=== PATIENT | female | born 2000 | race Caucasian/White ===

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

== ENCOUNTER 2021-12-26 22:29 | Emergency (ER) | payer OTHER, MEDICAID, SELFPAY ==
[2021-12-26 22:32] VITALS: BP 126/81; PULSE 87; RESP 18; TEMP 37.1; O2SAT 97; BMI 34.8
--- NOTE | 2021-12-26 22:56 | USR_ITS ---
PROCEDURE INFORMATION: Exam: US First Trimester, Transabdominal and US , Transvaginal Exam date and time: 12/26/2021 11:16 PM Age: 21 years old Clinical indication: Lmp or gestational age (in weeks): 8w 2d per lmp; Antepartum complications; Bleeding; Patient HX: At end of exam quant hcg is still pending; Additional info: Threatened miscarriage LABS AND CLINICAL REPORTS: Last menstrual period start date: 10/29/2021 Gestational age (Established): 8 w 2 d Estimated due date (Established): 08/05/2022 TECHNIQUE: Imaging protocol: Real-time transabdominal obstetrical ultrasound of the maternal pelvis and a first trimester , less than 14 weeks 0 days, with image documentation. Transvaginal imaging was used for better evaluation of the fetus, adnexa, and/or cervix. COMPARISON: US OB >= 14 weeks fetus [id number] 03/28/2020 1:32 PM FINDINGS: Gestation: Negative for intrauterine . MATERNAL: Uterus: Uterus measures 4.5 cm x 8.9 cm x 4.1 cm. Endometrial stripe is diffusely thickened measuring up to 2.3 cm, retained products of conception are not excluded, close clinical correlation, serial beta HCG levels and follow-up ultrasound as clinically indicated advised. Cervix: Unremarkable. Right ovary/adnexa: Right ovary measures 2.6 cm x 1.5 cm x 2.7 cm. Right ovarian volume is 5.5 mL. Left ovary/adnexa: Left ovary measures 2.5 cm x 1.9 cm x 3.2 cm. Left ovarian volume is 7.7 mL. Intraperitoneal space: No intraperitoneal free fluid. US/US OB <= 14 weeks fetus [id number] IMPRESSION: 1. Negative for intrauterine , if patient is , they remain at risk for ectopic , close clinical correlation, serial beta HCG levels and follow-up ultrasound as clinically indicated advised. 2. Endometrial stripe is diffusely thickened measuring up to 2.3 cm, retained products of conception are not excluded, close clinical correlation, serial beta HCG levels and follow-up ultrasound as clinically indicated advised.
--- NOTE | 2021-12-26 22:58 | ED_ITS ---
HPI - General: Chief complaint: Vaginal Bleeding Stated complaint: possible miscarriage Time Seen by Provider: 12/26/21 22:45 Source: patient Mode of arrival: ambulatory Limitations: no limitations History of Present Illness: 21-year-old female who is currently 8 weeks states that roughly an hour ago started having bleeding she states she did pass a clot. She had 1 previous no problems with that . States she has had some abdominal cramping she rates up 5 out of 10 denies any vomiting or diarrhea she denies any worse or improving factors. She has not seen anyone with this Date of Last Menstrual Period: 10/29/21 Associated symptoms: Deny abdominal pain, headache(s), nausea or vomiting Review of Systems Const: Denies: fever(s), chills, body aches or change in appetite Eyes: Denies: blurry vision or eye discomfort ENMT: Denies: throat pain or dental pain Card: Denies: chest pain Resp: Denies: dyspnea GI: Denies: abdominal pain, nausea, vomiting or diarrhea : Reports: vaginal bleeding Musc: Denies: neck pain or back pain Skin/Breast: Denies: rash Neuro: Denies: headache(s) Psych: Denies: depression Huey/Lymph: Denies: easy bruising All/Imm: Denies: urticaria PFSH ED PFSH: Medical History (Updated 12/27/21 @ 01:19 by Roger Schofield MD) No pertinent past medical history Social History Smoking and tobacco status: never smoked Female Reproductive History: Date of last menstrual period: 10/29/21 Physical Exam Const: COMMON NORMALS: no acute distress, patient oriented x3 and healthy appearing HENMT: COMMON NORMALS: normocephalic and atraumatic HEAD & SCALP: normocephalic and atraumatic Eye: COMMON NORMALS: Equal, round and reactive pupils present and EOMs intact bilaterally PUPIL: Yes Equal, round and reactive pupils present Neck/C-Spine: COMMON NORMALS: full ROM and supple Chest: COMMONS NORMALS: normal inspection of the chest and normal palpation of entire chest wall Resp: COMMON NORMALS: normal respiratory effort, No retractions, No use of accessory muscles and clear to auscultation bilaterally AUSCULTATION: clear to auscultation bilaterally Cardio: COMMON NORMALS: regular rate, regular rhythm and No murmurs present (Cardio) RATE: regular rate RHYTHM: regular rhythm GI: COMMON NORMALS: Normal to inspection, nondistended, normoactive bowel sounds present, Soft to palpation, non-tender and no masses PALPATION: Yes Soft to palpation Extremity: COMMON NORMALS: normal to inspection and full ROM Neuro: COMMON NORMALS: patient oriented x3, moves all extremities and no focal motor deficits Psych: COMMON NORMALS: mental status grossly normal, Normal thought process present and cooperative THOUGHT PROCESS: Normal thought process present Skin: COMMON NORMALS: no rashes or lesions noted and no wounds GENERAL SKIN EXAM: no rashes or lesions noted Course Vital Signs: Vital signs: Vital Signs Temperature 98.8 F 12/26/21 22:32 Pulse Rate 87 12/27/21 01:22 Respiratory Rate 18 12/27/21 01:22 Blood Pressure 126/81 12/27/21 01:22 Pulse Oximetry 97 12/27/21 01:22 Oxygen Delivery Me thod 12/26/21 22:32 MDM - OB/Uterine Contractions Medical Decision Making Patient presents with vaginal bleeding she is likely had a miscarriage her ultrasound here showed no IUP. Her pain and bleeding here is improved I recommended a pelvic exam but she refused we will get her follow-up I informed her she is to follow-up in 2 to 3 days to make sure her quantitative is trending down she is to return if worsening bleeding. Lab Data : 12/26/21 22:03 Radiology Impressions Ultrasound 12/26/21 22:56 IMPRESSION: 1. Negative for intrauterine , if patient is , they remain at risk for ectopic , close clinical correlation, serial beta HCG levels and follow-up ultrasound as clinically indicated advised. 2. Endometrial stripe is diffusely thickened measuring up to 2.3 cm, retained products of conception are not excluded, close clinical correlation, serial beta HCG levels and follow-up ultrasound as clinically indicated advised. Laboratory Results WBC 10.4 10^3/uL (4.5-13.0) 12/26/21 22:03 RBC 4.64 10^6/uL (4.1-5.3) 12/26/21 22:03 Hgb 13.4 g/dL (11.5-15.3) 12/26/21 22:03 Hct 40.2 % (37.0-47.0) 12/26/21 22: MCV 86.6 fl (81-99) 12/26/21 22: MCH 28.9 pg (28.0-34.0) 12/26/21 22: MCHC 33.3 g/dL (30.0-36.0) 12/26/21 22: RDW 12.1 % (12.1-15.1) 12/26/21 22: Plt Count 353 10^3/cmm (130-400) 12/26/21 22: MPV 9.9 fL (7.4-10.4) 12/26/21 22: Neut % (Auto) 72.4 % 12/26/21 22: Lymph % (Auto) 19.6 % 12/26/21 22: [place] % (Auto) 5.7 % 12/26/21 22: Eos % (Auto) 1.4 % 12/26/21: Baso % (Auto) 0.5 % 12/26/21: Neut # (Auto) 7.52 10^3/uL (1.8-8.0) 12/26/21 22: Lymph # (Auto) 2.0 10^3/uL (1.5-6.5) 12/26/21 22: [place] # (Auto) 0.6 10^3/uL (0.2-0.9) 12/26/21 22: Eos # (Auto) 0.2 10^3/uL (0.0-0.8) 12/26/21 22: Baso # (Auto) 0.1 10^3/uL (0.0-0.1) 12/26/21: Nucleated RBC % (auto) 0 % 12/26/21: Nucleated RBCs # 0.0 /100WBC 12/26/21: Ser , Semi-Qnt 93253.00 mIU/mL 12/26/21 22: Blood Type O Positive 12/26/21: Rho(D) Type Positive 12/26/21: Antibody Screen Negative 12/26/21 22: Discharge Plan Discharge Patient Disposition: Home Clinical Impression: Miscarriage Condition: Stable Prescriptions: No Action ibuprofen 800 mg Tablet 800 mg PO TID Qty: 45 0RF -U 106.5-1 mg Capsule 1 cap PO DAILY Qty: 90 2RF Discharge Orders: Discharge ED (Routine); Ordered 12/27/21 Ordered By: Roger Schofield Discharge Diet: Advance as tolerated Discharge Activity: Resume usual activity Patient Instructions: Miscarriage (ED) Coding Level of Care Code ED Underwriter Solicitation Director for Chg Fwd Exam Comprehensive
[2021-12-26 23:14] LABS: Basophils # 0.1 10^3/uL (0.0-0.1); Basophils % 0.5 %; Eosinophils # 0.2 10^3/uL (0.0-0.8); Eosinophils % 1.4 %; Hematocrit 40.2 % (37.0-47.0); Hemoglobin 13.4 g/dL (11.5-15.3); Lymphocytes % 19.6 %; Mean Corpuscular HGB Conc 33.3 g/dL (30.0-36.0); Mean Corpuscular Hemoglobin 28.9 pg (28.0-34.0); Mean Corpuscular Volume 86.6 fl (81-99); Mean Platelet Volume 9.9 fL (7.4-10.4); Monocytes # 0.6 10^3/uL (0.2-0.9); Monocytes % 5.7 %; Neutrophils # 7.52 10^3/uL (1.8-8.0); Neutrophils % 72.4 %; Nucleated Red Blood Cells % 0 %; Platelet Count 353 10^3/cmm (130-400); Red Blood Count 4.64 10^6/uL (4.1-5.3); Red Cell Distribution Width 12.1 % (12.1-15.1); White Blood Count 10.4 10^3/uL (4.5-13.0)
[2021-12-26] MEDS: acetaminophen 325 mg Tablet 650 MG PO (23:16)
[2021-12-27 01:22] VITALS: BP 126/81; PULSE 87; RESP 18; O2SAT 97
--- NOTE | 2021-12-27 09:12 | DCPLANNER ---
Addendum entered by Rhiannon Pérez 01/14/22 14:41: social services manager received the following message from [facility] regarding referral: Referral letter sent. Disregard referral after 01/20/2022 On Thu 2:35p Dec 31, 2021 Kisha Parker (Covering For: [facility] Front [facility]) Wrote To: [facility] left message with pt. mother to have pt call us Original Note: social services manager had message to schedule a follow up appointment for patient with [facility]. social services manager sent patients information to the front office staff at [facility]. Patients information will be printed and reviewed. Clinic will call patient with appointment information.
== END 2021-12-27 01:23 | disposition home or self-care (01) ==
PROVIDERS: Emergency Provider Emergency Medicine
DX: O03.9 Complete or unspecified spontaneous abortion without complication (principal)
CPT/HCPCS: 76801; 84702; 85025; 86850; 86900; 99284

== ENCOUNTER 2022-02-05 19:35 | Inpatient (IN) | payer OTHER, MEDICAID, SELFPAY ==
[2022-02-05 19:51] VITALS: BP 132/85; PULSE 94; RESP 18; TEMP 36.8; O2SAT 94; BMI 36.0
--- NOTE | 2022-02-05 19:53 | ED.C_ITS ---
HPI - Psych General: Chief Complaint: Psychiatric Symptoms Stated Complaint: SI Time Seen by Provider: 02/05/22 19:53 History of Present Illness: Ms. Granger is a 21-year-old female with history of depression presenting to the emergency department due to suicidal ideation and suicide attempt. She reports a longstanding history of depression though has not been on medication for some period of time. She does have a history of cutting and overdose though denies history of hospitalizations for this such. She has had increased social stressors including psychosis which limited her support system, subsequently she has had a miscarriage and also the end of a long-term relationship which has made her feel more depressed and suicidal. Intensity of symptoms is severe. Course has worsened. Yesterday she took 3 [id number] antihistamine medications with the hopes of this stopping her heart. Otherwise denies changes in health or medical complaints. No other specific changes in health, exacerbating, or alleviating factors identified. Onset (ago): week(s) Duration: getting worse History of same: Yes Context: not taking psychiatric medications and significant life stressor Associated psychiatric symptoms: depression and suicidal ideation If self harm: admits thoughts of self harm, has plan, has acted on plan and intentional overdose Review of Systems General: Reports: 10 or more systems reviewed and unremarkable except in HPI and below PFSH ED PFSH: Medical History No pertinent past medical history Psychiatric care Social History Smoking and tobacco status: never smoked Female Reproductive History: Date of last menstrual period: 10/29/21 Physical Exam Const: COMMON NORMALS: alert GENERAL APPEARANCE: cooperative and well developed HENMT: COMMON NORMALS: normocephalic and atraumatic HEAD & SCALP: normocephalic and atraumatic Eye: COMMON NORMALS: conjunctivae normal CONJUNCTIVA: Yes conjunctivae normal SCLERA: sclerae normal Neck/C-Spine: COMMON NORMALS: supple GENERAL: Yes trachea midline Resp: COMMON NORMALS: clear to auscultation bilaterally EFFORT & INSPECTION: Yes able to speak in complete sentences AUSCULTATION: clear to auscultation bilaterally Cardio: COMMON NORMALS: regular rate and regular rhythm RATE: regular rate RHYTHM: regular rhythm GI: COMMON NORMALS: Soft to palpation PALPATION: Yes Soft to palpation and No Tenderness to palpation present (GI) Extremity: GENERAL: Yes normal exam except as noted and No edema Neuro: COMMON NORMALS: moves all extremities SENSORIUM/ORIENTATION: Yes alert and No Orientation impaired Psych: COMMON NORMALS: mental status grossly normal and Normal thought process present MOOD & AFFECT: Yes depressed mood and Yes sad THOUGHT PROCESS: Normal thought process present Course Vital Signs: Vital signs: Vital Signs Temperature 98.5 F 02/08/22 11:40 Pulse Rate 86 02/08/22 11:40 Respiratory Rate 18 02/08/22 11:40 Blood Pressure 132/76 02/08/22 11:40 Pulse Oximetry 98 02/08/22 11:40 Oxygen Delivery Me thod 02/07/22 19:34 MDM - Psych Medical Decision Making 21-year-old female presenting to the emergency room due to suicidal ideation. Reports taking medication in attempt to overdose yesterday however there is no evidence of specific toxidrome on exam. EKG shows sinus rhythm, no terminal R wave in aVR, no STEMI Labs without significant hematologic or metabolic abnormalities require intervention. Toxic ingestions and UDS are negative. Given severity of symptoms including recent stressors and not being on medication likely that it is reasonable to admit the patient for psychiatric stabilization. Based on ED evaluation at this point there is no obvious condition that would preclude the patient from inpatient psychiatric care. The results of ED evaluation were discussed with the patient including plan for admission due to requirement for level of care not available if discharged to prevent significant worsening/deterioration. Patient agreeable with plan. Discussed with psychiatry service who was agreeable to admit patient. Medical Records I reviewed the patient's medical records. Lab Data I reviewed the patient's lab results. 02/05/22 19:57 02/05/22 19:57 Laboratory Results WBC 9.0 10^3/uL (4.5-13.0) 02/05/22 19:57 RBC 4.47 10^6/uL (4.1-5.3) 02/05/22 19:57 Hgb 13.1 g/dL (11.5-15.3) 02/05/22 19:57 Hct 41.7 % (37.0-47.0) 02/05/22 19:57 MCV 93.3 fl (81-99) 02/05/22 19:57 MCH 29.3 pg (28.0-34.0) 02/05/22 19:57 MCHC 31.4 g/dL (30.0-36.0) 02/05/22 19:57 RDW 12.0 % (12.1-15.1) L 02/05/22 19:57 Plt Count 227 10^3/cmm (130-400) 02/05/22 19:57 MPV 11.2 fL (7.4-10.4) H 02/05/22 19:57 Neut % (Auto) 63.7 % 02/05/22 19:57 Lymph % (Auto) 29.3 % 02/05/22 19:57 [place] % (Auto) 4.5 % 02/05/22 19:57 Eos % (Auto) 1.7 % 02/05/22 19:57 Baso % (Auto) 0.6 % 02/05/22 19:57 Neut # (Auto) 5.76 10^3/uL (1.8-8.0) 02/05/22 19:57 Lymph # (Auto) 2.7 10^3/uL (1.5-6.5) 02/05/22 19:57 [place] # (Auto) 0.4 10^3/uL (0.2-0.9) 02/05/22 19:57 Eos # (Auto) 0.2 10^3/uL (0.0-0.8) 02/05/22 19:57 Baso # (Auto) 0.1 10^3/uL (0.0-0.1) 02/05/22 19:57 Nucleated RBC % (auto) 0 % 02/05/22 19:57 Nucleated RBCs # 0.0 /100WBC 02/05/22 19:57 Sodium 137 mmol/L (136-145) 02/05/22 19:57 Potassium 3.8 mmol/L (3.5-5.1) 02/05/22 19:57 Chloride 102 mmol/L (98-107) 02/05/22 19:57 Carbon Dioxide 23 mmol/L (22-29) 02/05/22 19:57 Anion Gap 15.8 (5-19) 02/05/22 19:57 BUN 12 mg/dL (6-20) 02/05/22 19:57 Creatinine 0.6 mg/dL (0.5-0.9) 02/05/22 19:57 GFR Calculation 127.5 mL/min (90-130) 02/05/22 19:57 Glucose 99 mg/dL (65-115) 02/05/22 19:57 Calculated Osmolality 284 mOsm/kg (285-295) L 02/05/22 19:57 Calcium 9.4 mg/dL (8.5-10.5) 02/05/22 19:57 Total Bilirubin 0.2 mg/dL (0.15-1.2) 02/05/22 19:57 AST 21 U/L (0-32) 02/05/22 19:57 ALT 27 U/L (0-33) 02/05/22 19:57 Alkaline Phosphatase 121 U/L (35-105) H 02/05/22 19:57 Total Protein 8.3 g/dL (6.6-8.7) 02/05/22 19:57 Albumin 4.1 g/dL (3.5-5.2) 02/05/22 19:57 Globulin 4.2 g/dL (1.3-4.6) 02/05/22 19:57 TSH 1.37 uIU/mL (0.27-4.20) 02/05/22 19:57 HCG, Qual Negative (Negative) 02/05/22 20:07 Salicylates < 0.3 mg/dL (3-10) L 02/05/22 19:57 Urine Opiates Screen Negative ng/mL (Negative) 02/05/22 20:08 Acetaminophen < 5.0 ug/mL (10-30) L 02/05/22 19:57 Ur Barbiturates Screen Negative ng/mL (Negative) 02/05/22 20:08 Ur Phencyclidine Scrn Negative ng/mL (Negative) 02/05/22 20:08 Ur Amphetamines Screen Negative ng/mL (Negative) 02/05/22 20:08 U Benzodiazepines Scrn Negative ng/mL (Negative) 02/05/22 20:08 Urine Cocaine Screen Negative ng/mL (Negative) 02/05/22 20:08 U Marijuana (THC) Screen Negative ng/mL (Negative) 02/05/22 20:08 Ethyl Alcohol < 10 mg/dL (0-10) 02/05/22 19:57 Discharge Plan Discharge Patient Disposition: Admitted As Inpatient Admit Provider: Kevin Jesus Clinical Impression: Suicidal ideation, Suicide attempt by substance overdose Condition: Stable Discharge Diet: Regular Discharge Activity: Resume usual activity Coding Level of Care Code ED Farm Tractor Operator for Zoraida Pickens
[2022-02-05 20:17] LABS: Basophils # 0.1 10^3/uL (0.0-0.1); Basophils % 0.6 %; Eosinophils # 0.2 10^3/uL (0.0-0.8); Eosinophils % 1.7 %; Hematocrit 41.7 % (37.0-47.0); Hemoglobin 13.1 g/dL (11.5-15.3); Lymphocytes # 2.7 10^3/uL (1.5-6.5); Lymphocytes % 29.3 %; Mean Corpuscular HGB Conc 31.4 g/dL (30.0-36.0); Mean Corpuscular Hemoglobin 29.3 pg (28.0-34.0); Mean Corpuscular Volume 93.3 fl (81-99); Mean Platelet Volume 11.2 fL (7.4-10.4); Monocytes # 0.4 10^3/uL (0.2-0.9); Monocytes % 4.5 %; Neutrophils # 5.76 10^3/uL (1.8-8.0); Neutrophils % 63.7 %; Nucleated Red Blood Cells % 0 %; Platelet Count 227 10^3/cmm (130-400); Red Blood Count 4.47 10^6/uL (4.1-5.3)
[2022-02-05 20:31] LABS: Amphetamines Screen Urine Negative (Negative); Barbiturates Screen Urine Negative (Negative); Benzodiazepines Screen Urine Negative (Negative); Cocaine Screen Urine Negative (Negative); Opiate Screen Urine Negative (Negative); PCP Screen Urine Negative (Negative); THC Screen Urine Negative (Negative)
[2022-02-05 20:33] LABS: HCG Qualitative Urine. Negative (Negative)
--- NOTE | 2022-02-05 20:33 | PC.NURSE ---
Pt began having moderate panic attack, able to calm down some with guided breathing and sensory. MD notified
[2022-02-05] MEDS: LORazepam 1 mg Tablet PO (20:39)
[2022-02-05 20:45] LABS: Alanine Aminotransferase 27 U/L (0-33); Albumin Level 4.1 g/dL (3.5-5.2); Alkaline Phosphatase 121 U/L (35-105); Blood Urea Nitrogen 12 mg/dL (6-20); Calcium 9.4 mg/dL (8.5-10.5); Carbon Dioxide 23 mmol/L (22-29); Chloride 102 mmol/L (98-107); Globulin 4.2 g/dL (1.3-4.6); Glomerular Filtration Rate 127.5 mL/min (90-130); Glucose 99 mg/dL (65-115); Osmolality Calculated 284 mOsm/kg (285-295); Sodium 137 mmol/L (136-145); Thyroid Stimulating Hormone 1.37 uIU/mL (0.27-4.20); Total Bilirubin 0.2 mg/dL (0.15-1.2); Total Protein 8.3 g/dL (6.6-8.7)
[2022-02-05 20:54] LABS: Acetaminophen < 5.0 ug/mL (10-30); Alcohol Level < 10 mg/dL (0-10); Salicylate < 0.3 mg/dL (3-10)
[2022-02-05 20:59] LABS: Anion Gap 15.8 (5-19); Aspartate Amino Transferase 21 U/L (0-32); Potassium 3.8 mmol/L (3.5-5.1)
--- NOTE | 2022-02-05 21:37 | ECG_ITS ---
[facility] Date: 2022-02-05 Pat Name: Josselin Granger Department: Room: Gender: Female Cis Coordinator: : 2000 Requested By: Mark Gonzalez Order Number: [id number] Jose MD: Desean Cerna M.D. Measurements Intervals [place] Rate: 75 P: 49 WV: 158 QRS: 42 QRSD: 103 T: 43 QT: 367 QTc: 410 Interpretive Statements SINUS RHYTHM WITH SINUS ARRHYTHMIA POSSIBLE RIGHT VENTRICULAR CONDUCTION DELAY [RSR (QR) IN V1/V2] Compared to ECG 08/04/2019 19:35:34 No significant changes Electronically Signed On 02-07-2022 13:50:49 CLIENT ACCOUNT SPECIALIST by Desean Cerna M.D. [email or web address]
[2022-02-05 23:28] VITALS: BP 104/71; PULSE 88; RESP 18; O2SAT 96
[2022-02-05 23:42] VITALS: BP 122/78; PULSE 72; RESP 18; TEMP 36.4; O2SAT 99
[2022-02-06] MEDS: hyDROXYzine 25 mg Capsule 50 MG PO ×2 (00:04→23:58)
[2022-02-06] MEDS: trazodone 50 mg Tablet PO ×2 (00:04→23:58)
[2022-02-06 06:00] VITALS: BP 95/58; PULSE 78; RESP 18; TEMP 36.7; O2SAT 98
--- NOTE | 2022-02-06 09:55 | PC.NURSE ---
Pt resting in bed with eyes closed; respirations even and unlabored at 0800. Attempted to complete pt's assessment at 0900. Pt opened her eyes, mumbled a few answers, then closed her eyes again. Allowed pt to rest. Will attempt assessment later.
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
[2022-02-06 14:00] VITALS: BP 91/54; PULSE 85; RESP 18; TEMP 36.6; O2SAT 97
[2022-02-06 22:00] VITALS: BP 96/59; PULSE 66; RESP 17; TEMP 36.8; O2SAT 99
[2022-02-07 06:00] VITALS: BP 99/61; PULSE 72; RESP 18; TEMP 36.7; O2SAT 98
[2022-02-07 14:00] VITALS: BP 102/74; PULSE 75; RESP 18; TEMP 36.4; O2SAT 98
--- NOTE | 2022-02-07 17:21 | W.PM.NPUPNS ---
Subjective NPU Subjective: Patient is in today reporting that she is feeling better. Her mother visited and agreed she is better and talked about the possibility of discharge. Further investigation identified that the greater goal of going to the hospital was clear that waiting for the appointment at [facility] was going to be problematic and not safe. So essentially they wanted a medication initiated and mom reports she feels she would be able to watch her and keep her safe while you are waiting for the appointment. We discussed evaluating today the possibility discharge tomorrow. Mental Status Exam MSE Comments: This is an obese, short, white female in hospital scrubs on with limited grooming and eye contact. No abnormal movements except for psychomotor retardation. Somewhat cooperative with exam in mild distress. Speech was normal rate and volume. Mood described as a little better, affect is congruent. Thought process, organized. Thought content: patient denies suicidal or homicidal ideation, no delusions reported or noted and denies any auditory or visual hallucinations. Attention and concentration are intact and memory appeared reliable but none were formally tested. She is alert and oriented times three. Insight and judgment are fair. Impulse control is fair. Vitals/I&O/Wt Last Vital Signs Temp 98.5 F 02/07/22 19:34 Pulse 86 02/07/22 19:34 Resp 16 02/07/22 19:34 BP 132/76 02/07/22 19:34 Pulse Ox 98 02/07/22 19:34 O2 Del Method 02/07/22 19:34 Data NPU 02/05/22 19:57 02/05/22 19:57 A&P Assessment and plan (1) Suicidal ideation: (2) Suicide attempt by substance overdose: (3) PTSD (post-traumatic stress disorder): (4) Major depressive disorder: Plan This documentThis is a 21 year old white woman with a history of trauma, depression and genetic loading for mental health, addiction and lethality issues who presents reporting suicidal ideation and open currently to medications at this time. 1. Continue current medications. Started Prozac 20 mg poq daily. 2. Encourage individual, group and milieu therapy 3. Continue q-15 minute check for safety 4. Recommend sober living treatment at the highest level of care to which the patient is willing to commit. Involuntary Hold Information 96 Hour Hold: 96 Hour Involuntary Admission: No Attestations NPU Medical Necessity Statement*: Inpatient hospitalization is medically necessary and the clinically appropriate intervention at this time. We will monitor medications and make changes as indicated. Likely length of stay is 1-3 days with tentative plan for discharge tomorrow if there are no complications. Coding Level of Care Code Acute Preload Supervisor for g Fwd Diagnoses Suicidal ideation R45.851 Suicide attempt by substance overdose T65.92XA PTSD (post-traumatic stress disorder) F43.10 Major depressive disorder F32.9
[2022-02-07 19:34] VITALS: BP 132/76; PULSE 86; RESP 16; TEMP 36.9; O2SAT 98
[2022-02-08] MEDS: hyDROXYzine 25 mg Capsule 50 MG PO (00:20)
[2022-02-08 06:00] VITALS: RESP 18
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
[2022-02-08] MEDS: fluoxetine 20 mg Capsule PO (11:37)
[2022-02-08 11:40] VITALS: BP 132/76; PULSE 86; RESP 18; TEMP 36.9; O2SAT 98
== END 2022-02-08 12:12 | disposition home or self-care (01) | DRG 885 ==
LOC: ER 21:19 → NP 23:29
PROVIDERS: Admitting Provider Psychiatry & Neurology Psychiatry; Emergency Provider Emergency Medicine; Visit Provider Psychiatry & Neurology Psychiatry
DX: F33.9 Major depressive disorder, recurrent, unspecified (principal); R45.851 Suicidal ideations; T65.92XA Toxic effect of unspecified substance, intentional self-harm, initial encounter; F43.10 Post-traumatic stress disorder, unspecified; Z91.52 Personal history of nonsuicidal self-harm; F17.290 Nicotine dependence, other tobacco product, uncomplicated; Z63.0 Problems in relationship with spouse or partner; Z62.810 Personal history of physical and sexual abuse in childhood
CPT/HCPCS: 80053; 80306; 80307; 81025; 84443; 85025; 93005; 97150; 97165; 99285

== ENCOUNTER 2024-04-22 13:43 | Inpatient (IN) | payer OTHER, MEDICAID, SELFPAY ==
[2024-04-22 13:45] VITALS: BP 109/72; PULSE 88; RESP 16; TEMP 36.8; O2SAT 98; BMI 35.6
--- NOTE | 2024-04-22 13:55 | W.ED.PSYCHS ---
HPI - Psych General: Chief Complaint: Psychiatric Symptoms Stated Complaint: MHE Time Seen by Provider: 04/22/24 13:51 Source: patient Mode of arrival: ambulatory Limitations: no limitations History of Present Illness: Patient is a 23-year-old female who presents to the ED today with complaint of worsening anxiety and depression. Patient states she is supposed to be taking fluoxetine and buspirone but stopped taking them a few months ago. She feels like she is spiraling and does not feel like she is in a good mental state currently. She is having suicidal ideations but she denies specific plan. She does have a previous attempt approximately 2 years ago. She has a history of self cutting. Reports marijuana use but no other drug use. MD complaint: suicidal ideation and feels depressed Onset (ago): week(s) Duration: constant History of same: Yes Relieving factors: none Exacerbating factors: other (not taking psych meds) Context: not taking psychiatric medications Associated psychiatric symptoms: depression and suicidal ideation Associated symptoms: Reports depression and suicidal ideation; Deny auditory hallucinations, visual hallucinations or homicidal ideation Treatments prior to arrival: none Related Data Home Medications ?Medication ?Instructions ?Recorded ?Confirmed No Known Home Medications 04/22/24 04/22/24 Allergies Allergy/AdvReac Type Severity Reaction Status Date / Time sulfamethoxazole (From Allergy ALGY-Anaphy Verified 05/12/22 12:58 Bactrim) laxis trimethoprim (From Bactrim) Allergy ALGY-Anaphy Verified 05/12/22 12:58 laxis Review of Systems Const: Denies: fever(s), chills, body aches, fatigue or malaise Card: Denies: chest pain, palpitations, lightheadedness or syncope Resp: Denies: dyspnea GI: Denies: abdominal pain, nausea, vomiting or diarrhea Skin/Breast: Denies: rash Neuro: Denies: headache(s) Psych: Reports: anxiety, depression, hopelessness and suicidal ideation; Denies: paranoia, visual hallucinations, auditory hallucinations or homicidal ideation [facility] ED PFSH: Medical History Cannabis use disorder F12.10 Cannabis use, uncomplicated (no medical marijuana card) Vapes nicotine containing substance Psychiatric care No pertinent past medical history Social History (Reviewed 04/22/24 @ 14:12 by JACQUE Foy Smoking and tobacco/nicotine status: never used tobacco/nicotine Physical Exam Const: COMMON NORMALS: no acute distress, patient oriented x3, no limitations, alert and well nourished GENERAL APPEARANCE: cooperative Resp: COMMON NORMALS: normal respiratory effort and clear to auscultation bilaterally AUSCULTATION: clear to auscultation bilaterally Cardio: COMMON NORMALS: regular rate and regular rhythm RATE: regular rate RHYTHM: regular rhythm Neuro: COMMON NORMALS: patient oriented x3 SENSORIUM/ORIENTATION: Yes alert Psych: COMMON NORMALS: mental status grossly normal, Normal thought process present, cooperative, speech normal, activity/motor behavior normal, denies hallucinations and denies homicidal ideation APPEARANCE: Yes grossly normal ATTITUDE: Yes calm ACTIVITY/MOTOR BEHAVIOR: Yes appropriate eye contact and No psychomotor agitation SPEECH: Yes normal speech MOOD & AFFECT: Yes euthymic mood THOUGHT PROCESS: Normal thought process present MEMORY/COGNITION: Yes memory grossly intact and Yes cognition grossly intact INSIGHT: Good insight present (Psych) JUDGEMENT: Good judgement present (Psych) Course Consultations: Consultation #1: Dr. Jesus-accepts to NPU Vital Signs: Vital signs: Vital Signs Temperature 98.2 F 04/22/24 13:45 Pulse Rate 88 04/22/24 13:45 Respiratory Rate 16 04/22/24 13:45 Blood Pressure 109/72 04/22/24 13:45 Pulse Oximetry 98 04/22/24 13:45 Oxygen Delivery Me thod Room Air 04/22/24 13:45 MDM - Psych Medical Decision Making Patient will be admitted to NPU for depression and suicidal ideations. She is voluntary at this time. Medical Records I reviewed the patient's medical records. Lab Data I reviewed the patient's lab results. 04/22/24 14:40 04/22/24 14:40 Laboratory Results WBC 9.16 10^3/uL (3.29-11.43) 04/22/24 14:40 RBC 4.70 10^6/uL (3.85-5.65) 04/22/24 14:40 Hgb 13.30 g/dL (11.27-16.99) 04/22/24 14:40 Hct 41.1 % (36-47) 04/22/24 14:40 MCV 87.4 fl (85-98) 04/22/24 14:40 MCH 28.3 pg (27-33) 04/22/24 14:40 MCHC 32.4 g/dL (30-55) 04/22/24 14:40 RDW 12.0 % (12.1-15.1) L 04/22/24 14:40 Plt Count 293 10^3/cmm (157-399) 04/22/24 14:40 MPV 9.7 fL (7.4-10.4) 04/22/24 14:40 Neut % (Auto) 66.7 % 04/22/24 14:40 Lymph % (Auto) 25.4 % 04/22/24 14:40 [place] % (Auto) 6.3 % 04/22/24 14:40 Eos % (Auto) 0.9 % 04/22/24 14:40 Baso % (Auto) 0.5 % 04/22/24 14:40 Neut # (Auto) 6.10 10^3/uL (1.8-7.7) 04/22/24 14:40 Lymph # (Auto) 2.3 10^3/uL (0.8-4.8) 04/22/24 14:40 [place] # (Auto) 0.6 10^3/uL (0.2-0.9) 04/22/24 14:40 Eos # (Auto) 0.1 10^3/uL (0.0-0.8) 04/22/24 14:40 Baso # (Auto) 0.1 10^3/uL (0.0-0.1) 04/22/24 14:40 Nucleated RBC % (auto) 0 % 04/22/24 14:40 Nucleated RBCs # 0.0 /100WBC 04/22/24 14:40 Sodium 132 mmol/L (136-145) L 04/22/24 14:40 Potassium 3.9 mmol/L (3.5-5.1) 04/22/24 14:40 Chloride 101 mmol/L (98-107) 04/22/24 14:40 Carbon Dioxide 19 mmol/L (22-29) L 04/22/24 14:40 Anion Gap 15.9 (5-19) 04/22/24 14:40 BUN 12 mg/dL (6-20) 04/22/24 14:40 Creatinine 0.6 mg/dL (0.5-0.9) 04/22/24 14:40 GFR Calculation 125.0 mL/min (90-130) 04/22/24 14:40 Glucose 91 mg/dL (65-115) 04/22/24 14:40 Calculated Osmolality 273 mOsm/kg (285-295) L 04/22/24 14:40 Calcium 9.5 mg/dL (8.5-10.5) 04/22/24 14:40 Total Bilirubin 0.3 mg/dL (0.15-1.2) 04/22/24 14:40 AST 15 U/L (0-32) 04/22/24 14:40 ALT 17 U/L (0-33) 04/22/24 14:40 Alkaline Phosphatase 109 U/L (35-105) H 04/22/24 14:40 Total Protein 8.2 g/dL (6.6-8.7) 04/22/24 14:40 Albumin 4.0 g/dL (3.5-5.2) 04/22/24 14:40 Globulin 4.2 g/dL (1.3-4.6) 04/22/24 14:40 HCG, Qual Negative (Negative) 04/22/24 14:40 Salicylates < 0.3 mg/dL (3-10) L 04/22/24 14:40 Acetaminophen < 5.0 ug/mL (10-30) L 04/22/24 14:40 Ethyl Alcohol < 10 mg/dL (0-10) 04/22/24 14:40 No radiology studies performed this visit Discharge Plan Discharge Patient Disposition: Admitted As Inpatient Clinical Impression: Suicidal ideation Condition: Stable Coding Level of Care Code ED [employer] for Zoraida Pickens
[2024-04-22 14:51] LABS: Basophils # 0.1 10^3/uL (0.0-0.1); Basophils % 0.5 %; Eosinophils # 0.1 10^3/uL (0.0-0.8); Eosinophils % 0.9 %; Hematocrit 41.1 % (36-47); Lymphocytes # 2.3 10^3/uL (0.8-4.8); Lymphocytes % 25.4 %; Mean Corpuscular HGB Conc 32.4 g/dL (30-55); Mean Corpuscular Hemoglobin 28.3 pg (27-33); Mean Corpuscular Volume 87.4 fl (85-98); Mean Platelet Volume 9.7 fL (7.4-10.4); Monocytes # 0.6 10^3/uL (0.2-0.9); Monocytes % 6.3 %; Neutrophils % 66.7 %; Nucleated Red Blood Cells % 0 %; Platelet Count 293 10^3/cmm (157-399); White Blood Count 9.16 10^3/uL (3.29-11.43)
[2024-04-22 15:06] LABS: HCG, Serum Qual Negative (Negative)
[2024-04-22 15:20] LABS: Alanine Aminotransferase 17 U/L (0-33); Alkaline Phosphatase 109 U/L (35-105); Aspartate Amino Transferase 15 U/L (0-32); Blood Urea Nitrogen 12 mg/dL (6-20); Calcium 9.5 mg/dL (8.5-10.5); Carbon Dioxide 19 mmol/L (22-29); Chloride 101 mmol/L (98-107); Creatinine Clr Calc Pharmacy 163.8205; Globulin 4.2 g/dL (1.3-4.6); Glucose 91 mg/dL (65-115); Osmolality Calculated 273 mOsm/kg (285-295); Sodium 132 mmol/L (136-145); Total Bilirubin 0.3 mg/dL (0.15-1.2); Total Protein 8.2 g/dL (6.6-8.7)
[2024-04-22 15:21] LABS: Acetaminophen < 5.0 ug/mL (10-30); Alcohol Level < 10 mg/dL (0-10); Anion Gap 15.9 (5-19); Potassium 3.9 mmol/L (3.5-5.1); Salicylate < 0.3 mg/dL (3-10)
[2024-04-22 15:54] LABS: Amphetamines Screen Urine Negative (Negative); Barbiturates Screen Urine Negative (Negative); Benzodiazepines Screen Urine Positive (Negative); Cocaine Screen Urine Negative (Negative); Opiate Screen Urine Negative (Negative); PCP Screen Urine Negative (Negative); THC Screen Urine Positive (Negative)
[2024-04-22 19:53] VITALS: BP 118/76; PULSE 69; O2SAT 97
[2024-04-22 20:19] VITALS: BP 116/73; PULSE 76; RESP 18; TEMP 37.2; O2SAT 98
[2024-04-22 21:50] VITALS: BP 116/73; PULSE 76; RESP 18; TEMP 37.2; O2SAT 98
[2024-04-23] MEDS: hyDROXYzine 25 mg Capsule 50 MG PO ×2 (01:13→23:16)
[2024-04-23] MEDS: trazodone 50 mg Tablet PO ×2 (01:13→23:16)
[2024-04-23 06:00] VITALS: BP 98/51; PULSE 86; RESP 16; TEMP 36.9; O2SAT 97
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
[2024-04-23 14:00] VITALS: BP 91/60; PULSE 92; RESP 16; TEMP 37.2; O2SAT 98
[2024-04-23] MEDS: fluoxetine 20 mg Capsule PO (18:25)
[2024-04-23 20:00] VITALS: BP 92/52; PULSE 83; RESP 16; TEMP 36.8; O2SAT 98
[2024-04-23 22:00] VITALS: BP 92/52; PULSE 83; RESP 16; TEMP 36.8; O2SAT 98
[2024-04-24 06:00] VITALS: BP 86/42; PULSE 89; RESP 15; TEMP 36.8; O2SAT 94
[2024-04-24] MEDS: fluoxetine 20 mg Capsule PO (08:39)
[2024-04-24 14:00] VITALS: BP 120/80; PULSE 75; RESP 16; TEMP 37.4; O2SAT 98
--- NOTE | 2024-04-24 15:26 | P.NPUPN_ITS ---
Subjective NPU 2 Subjective: Patient presented today reporting that things have been better the last 24 hours. She reports missing her child and having a safe place to go. We discussed that the social work team will be in tomorrow to begin looking at the logistics for follow-up and making sure appropriate appointments are in place when discharge recurs. We discussed that there is not a need for her to stay until the 24-hour hold is complete but that we would determine when she leaves by evaluation. She denied any side effects to the medication. Mental Status Exam 2 MSE Comments: This is an obese, short, white female in hospital scrubs on with limited grooming and eye contact. No abnormal movements except for psychomotor retardation. Cooperative with exam in mild to moderate distress. Speech was normal rate and volume. Mood described as depressed and anxious, affect is congruent. Thought process, organized. Thought content: patient denies suicidal but reported feeling that way upon admission but denied homicidal ideation, no delusions reported or noted and denies any auditory or visual hallucinations. Attention and concentration are intact and memory appeared reliable but none were formally tested. She is alert and oriented times three. Insight and judgment are fair. Impulse control is limited. Vitals/I&O/Wt Last Vital Signs Temp 99.3 F 04/24/24 14:00 Pulse 75 04/24/24 14:00 Resp 16 04/24/24 14:00 BP 120/80 04/24/24 14:00 Pulse Ox 98 04/24/24 14:00 O2 Del Method Room Air 04/24/24 14:00 Weight last 48 hrs Weight 95.254 kg Data NPU 04/22/24 14:40 04/22/24 14:40 A&P Assessment and plan (1) Suicidal ideation: (2) PTSD (post-traumatic stress disorder): (3) Major depressive disorder: (4) Cannabis use disorder: (5) Anxiety: Plan This is a 23-year-old white female with a history of trauma, depression, anxiety and genetic loading for mental health, addiction and lethality issues who presents again after over 2 years reporting suicidal ideation and wanting to restart her medications and treatment. UDS positive for cannabis. 1. Restared Prozac 20 mg p.o. daily and BuSpar 10 mg p.o. twice daily. 2. Encourage individual, group and milieu therapy. 3. Continue every 15 minute checks for safety. 4. Encourage sober living treatment after discharge at the highest level of care to which she is willing to commit. 5. Obtain collateral information. PDMP PDMP Reviewed: Not Reviewed Involuntary Hold Information 2 96 Hour Hold: 96 Hour Involuntary Admission: No Attestations NPU 2 Medical Necessity Statement*: Inpatient hospitalization is medically necessary and the clinically appropriate intervention at this time. We will monitor medications and make changes as indicated. Likely length of stay is 2-4 days. Coding Level of Care Code Acute Code for [facility] Fwd Diagnoses Suicidal ideation R45.851 PTSD (post-traumatic stress disorder) F43.10 Major depressive disorder F32.9 Cannabis use disorder F12.90 Anxiety F41.9
[2024-04-24 22:00] VITALS: BP 111/64; PULSE 74; RESP 18; TEMP 37.4; O2SAT 98
[2024-04-25] MEDS: trazodone 50 mg Tablet PO (01:16)
[2024-04-25] MEDS: hyDROXYzine 25 mg Capsule 50 MG PO (01:16)
[2024-04-25 06:00] VITALS: BP 86/49; PULSE 93; RESP 16; TEMP 36.8; O2SAT 96
[2024-04-25] MEDS: fluoxetine 20 mg Capsule PO (07:53)
[2024-04-25 14:00] VITALS: BP 99/56; PULSE 91; RESP 17; TEMP 37.2; O2SAT 97
--- NOTE | 2024-04-25 14:11 | W.PM.NPUDCS ---
Diagnoses at Discharge Discharge Diagnosis (1) Suicidal ideation: Status: Resolved (2) PTSD (post-traumatic stress disorder): Status: Acute (3) Major depressive disorder: Status: Acute (4) Cannabis use disorder: Status: Acute Permanent problem details: F12.10 Cannabis use, uncomplicated (no medical marijuana card) (5) Anxiety: Status: Acute Reason for Visit Reason for Visit: MHE Involuntary Hold Information 96 Hour Hold: 96 Hour Involuntary Admission: No Mental Status Exam MSE Comments: This is an obese, short, white female in hospital scrubs on with limited grooming and eye contact. No abnormal movements except for psychomotor retardation. Cooperative with exam in mild to moderate distress. Speech was normal rate and volume. Mood described as depressed and anxious, affect is congruent. Thought process, organized. Thought content: patient denies suicidal but reported feeling that way upon admission but denied homicidal ideation, no delusions reported or noted and denies any auditory or visual hallucinations. Attention and concentration are intact and memory appeared reliable but none were formally tested. She is alert and oriented times three. Insight and judgment are fair. Impulse control is limited. Discharge Data Studies Completed and Pending: Laboratory Results WBC 9.16 10^3/uL (3.2 9-11.43) 04/22/24 14:40 RBC 4.70 10^6/uL (3.8 5-5.65) 04/22/24 14:40 Hgb 13.30 g/dL (11.27 -16.99) 04/22/24 14:40 Hct 41.1 % (36-47) 04/22/24 14:40 MCV 87.4 fl (85-98) 04/22/24 14:40 MCH 28.3 pg (27-33) 04/22/24 14:40 MCHC 32.4 g/dL (30-55) 04/22/24 14:40 RDW 12.0 % (12.1-15.1 ) L 04/22/24 14:40 Plt Count 293 10^3/cmm (157 -399) 04/22/24 14:40 MPV 9.7 fL (7.4-10.4) 04/22/24 14:40 Neut % (Auto) 66.7 % 04/22/24 14:40 Lymph % (Auto) 25.4 % 04/22/24 14:40 [place] % (Auto) 6.3 % 04/22/24 14:40 Eos % (Auto) 0.9 % 04/22/24 14:40 Baso % (Auto) 0.5 % 04/22/24 14:40 Neut # (Auto) 6.10 10^3/uL (1.8 -7.7) 04/22/24 14:40 Lymph # (Auto) 2.3 10^3/uL (0.8- 4.8) 04/22/24 14:40 [place] # (Auto) 0.6 10^3/uL (0.2- 0.9) 04/22/24 14:40 Eos # (Auto) 0.1 10^3/uL (0.0- 0.8) 04/22/24 14:40 Baso # (Auto) 0.1 10^3/uL (0.0- 0.1) 04/22/24 14:40 Nucleated RBC % (a uto) 0 % 04/22/24 14:40 Nucleated RBCs # 0.0 /100WBC 04/22/24 14:40 Sodium 132 mmol/L (136-1 45) L 04/22/24 14:40 Potassium 3.9 mmol/L (3.5-5 .1) 04/22/24 14:40 Chloride 101 mmol/L (98-10 7) 04/22/24 14:40 Carbon Dioxide 19 mmol/L (22-29) L 04/22/24 14:40 Anion Gap 15.9 (5-19) 04/22/24 14:40 BUN 12 mg/dL (6-20) 04/22/24 14:40 Creatinine 0.6 mg/dL (0.5-0. 9) 04/22/24 14:40 GFR Calculation 125.0 mL/min (90- 130) 04/22/24 14:40 Glucose 91 mg/dL (65-115) 04/22/24 14:40 Calculated Osmolal ity 273 mOsm/kg (285- 295) L 04/22/24 14:40 Calcium 9.5 mg/dL (8.5-10 .5) 04/22/24 14:40 Total Bilirubin 0.3 mg/dL (0.15-1 .2) 04/22/24 14:40 AST 15 U/L (0-32) 04/22/24 14:40 ALT 17 U/L (0-33) 04/22/24 14:40 Alkaline Phosphata se 109 U/L (35-105) H 04/22/24 14:40 Total Protein 8.2 g/dL (6.6-8.7 ) 04/22/24 14:40 Albumin 4.0 g/dL (3.5-5.2 ) 04/22/24 14:40 Globulin 4.2 g/dL (1.3-4.6 ) 04/22/24 14:40 HCG, Qual Negative (Negati ve) 04/22/24 14:40 Salicylates < 0.3 mg/dL (3-10 ) L 04/22/24 14:40 Urine Opiates Scre en Negative ng/mL (N egative) 04/22/24 14:00 Acetaminophen < 5.0 ug/mL (10-3 0) L 04/22/24 14:40 Ur Barbiturates Sc reen Negative ng/mL (N egative) 04/22/24 14:00 Ur Phencyclidine S crn Negative ng/mL (N egative) 04/22/24 14:00 Ur Amphetamines Sc reen Negative ng/mL (N egative) 04/22/24 14:00 U Benzodiazepines Scrn Positive ng/mL (N egative) H 04/22/24 14:00 Urine Cocaine Scre en Negative ng/mL (N egative) 04/22/24 14:00 U Marijuana (THC) Screen Positive ng/mL (N egative) H 04/22/24 14:00 Ethyl Alcohol < 10 mg/dL (0-10) 04/22/24 14:40 Vitals: Last Vital Signs Temp 98.2 F 04/25/24 06:00 Pulse 93 04/25/24 06:00 Resp 16 04/25/24 06:00 BP 86/49 04/25/24 06:00 Pulse Ox 96 04/25/24 06:00 O2 Del Method Room Air 04/24/24 14:00 Discharge Plan Discharge Patient Disposition: Home Condition: Stable Prescriptions: New buspirone 10 mg tablet 10 mg PO TID 30 Days Qty: 90 1RF trazodone 50 mg Tablet 50 mg PO BEDTIME PRN (Reason: Sleep) 30 Days Qty: 30 1RF fluoxetine 20 mg Capsule 20 mg PO DAILY 30 Days Qty: 30 1RF hydroxyzine pamoate 25 mg Capsule 50 mg PO Q6H PRN (Reason: Anxiety) 30 Days Qty: 120 1RF Discharge Orders: Discharge Order (Routine); Ordered 04/25/24 Ordered By: Kevin Jesus Referrals: [facility] [Other] (Call Alejandra Jorge, MS [facility] [phone] to scheduled appointment. ) Discharge Diet: Regular Discharge Activity: Resume usual activity Patient Instructions: Opioid Safety Discharge Attestations NPU Time Spent in Discharge Care*: less than 30 min Specific Discharge Activities: Specific discharge activities: educating patient, discussing with pillowcase cleaner/social workers/dc planners, documenting/other paperwork and evaluating patient/reviewing data Coding Level of Care Code Acute Code for g Fwd Diagnoses Suicidal ideation R45.851 PTSD (post-traumatic stress disorder) F43.10 Major depressive disorder F32.9 Cannabis use disorder F12.90 Anxiety F41.9
== END 2024-04-25 15:40 | disposition home or self-care (01) | DRG 881 ==
LOC: ER 14:14 → NP 18:15
PROVIDERS: Admitting Provider Psychiatry & Neurology Psychiatry; Emergency Provider Physician Assistant; Visit Provider Psychiatry & Neurology Psychiatry
DX: F32.9 Major depressive disorder, single episode, unspecified (principal); R45.851 Suicidal ideations; F41.9 Anxiety disorder, unspecified; T43.226A Underdosing of selective serotonin reuptake inhibitors, initial encounter; T43.596A Underdosing of other antipsychotics and neuroleptics, initial encounter; F12.90 Cannabis use, unspecified, uncomplicated; F17.290 Nicotine dependence, other tobacco product, uncomplicated; Z91.128 Patient's intentional underdosing of medication regimen for other reason; Z91.51 Personal history of suicidal behavior
CPT/HCPCS: 36415; 80053; 80306; 80307; 84703; 85025; 97165; 99285

== ENCOUNTER → 2024-04-27 16:13 | Outpatient (BNVA) | payer MEDICAID, SELFPAY | PROVIDERS: Visit Provider Registered Nurse Neonatal Intensive Care | DX: N92.6 Irregular menstruation, unspecified (principal) | CPT/HCPCS: 81025 ==

== ENCOUNTER → 2024-05-09 13:11 | Outpatient (BNVA) | payer MEDICAID, SELFPAY | PROVIDERS: Visit Provider Nurse Practitioner | DX: F32.9 Major depressive disorder, single episode, unspecified (principal); F43.10 Post-traumatic stress disorder, unspecified | CPT/HCPCS: 80061; 83036 ==